=== PATIENT | male | born 1970 | race Caucasian/White ===

== ENCOUNTER 2017-08-27 18:42 | Observation (INO) | payer OTHER ==
--- NOTE | 2017-08-27 19:26 | PDOC ---
History of Present Illness - General History Source: Patient Exam Limitations: No Limitations - History of Present Illness Initial Comments: 08/27/17 20:49 A portion of this note was documented by scribe services under my direction. I have reviewed the details of the note, within reason, and agree with the documentation. The case summary and management plan written by me. Assessment and plan: This is a 47-year-old male who comes in complaining of some chest discomfort/pressure and a cough. Patient has multiple risk factors including he started smoking recently. Patient cardiogram has some flattening of his T waves laterally. Patient's heart scores 4. Patient's chest x-ray shows no acute infiltrate however does show some mild cardiomegaly. Patient's initial troponin is negative however he needs to be placed in observation for 2 more sets of cardiac enzymes to rule out cardiac causes of his chest pressure/ discomfort. Patient will be placed in observation to the hospitalist service. Discussed with hospitalist service. <Jag Ortega I - Last Filed: 08/27/17 20:55> - General History Source: Patient Exam Limitations: No Limitations - History of Present Illness Initial Comments: 08/27/17 19:35 The patient is a 47 year old male with a significant past medical history of hypertension, hyperlipidemia, diabetes, BROWN, sleep apnea (uses a cpap machine), and obesity, who presents to the ED with a cough w/ esparza phlegm that began 3 days ago. Patient also complains of a headache, chills, and sweats. He denies any worsening or alleviating factors. Patient denies body aches, fever, chest pain, SOB, nausea, vomiting, diarrhea. Patient states he has family history of cardiac issues. PAST MEDICAL HISTORY: hypertension, hyperlipidemia, diabetes, BROWN, obesity, sleep apnea. PAST SURGICAL HISTORY: no significant history FAMILY HISTORY: Cardiac issues. (Patient doesn't remember exactly because he is adopted) SOCIAL HISTORY: Pt lives with family and is employed. MEDICATIONS: reviewed ALLERGIES: As per nursing notes ROS General: + chills. + diaphoretic. No fevers no weakness, no weight loss HEENT: No change in vision. No sore throat,. No ear pain CardioVascular: No chest pain or shortness of breath Respiratory: + cough w/ esparza phlegm No wheezing. Gastrointestinal: no nausea, vomiting, diarrhea or constipation, No rectal bleeding Genitourinary: No dysuria, hematuria, or frequency Musculoskeletal: No joint or muscle pain or swelling Neurologic: No headache, vertigo, dizziness or loss of consciousness Psychiatric: nor depression Skin: No rashes or easy bruising Endocrine: no increased thirst or abnormal weight change Allergic: no skin or latex allergy All other systems reviewed and normal Adult Exam: General: Well-nourished well-developed individual, no acute distress. Diaphoretic. HEENT: Throat: Normal, tonsils normal, no erythema or exudate Neck: Supple, no meningeal signs, no lymphadenopathy Eyes:Pupils equal reactive and round, extraocular motion intact Chest: Nontender to palpation Cardiac: S1-S2 normal, regular rate and rhythm, no murmurs rubs or gallops Respiratory: Lungs clear to auscultation bilateral Abdomen: Soft, nondistended, normal bowel sounds, nontender to palpation diffusely Extremities: Warm, dry, no cyanosis, clubbing, or edema Skin: No rashes Neuro: Alert and oriented x3, nonfocal exam, grossly intact, normal gait Psych: Normal mood and affect <Dejon Hall - Last Filed: 08/27/17 21:22> - General Chief Complaint: Cold Symptoms Stated Complaint: COUGH Time Seen by Provider: 08/27/17 19:08 Past History - Past Medical History Anemia: Yes (THE REASON HE IS HAVING GI WORKUP) Asthma: No Cancer: No Cardiac Disorders: Yes (C/O CHEST DISCOMFORT-IRREGULAR HEARTBEAT--NUCLEAR STRESS [place],2013) CVA: No COPD: No CHF: No Dementia: No Diabetes: (BORDERLINE) GI Disorders: Yes (GERD,COLON POLYP-BENIGN,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) HTN: Yes Hypercholesterolemia: Yes Psychiatric Problems: Yes (DEPRESSION/PTS) Seizures: No Thyroid Disease: No - Surgical History Abdominal Surgery: No Appendectomy: No Cardiac Surgery: No Cholecystectomy: No Lung Surgery: No Neurologic Surgery: No Orthopedic Surgery: No - Immunization History Td Vaccination: Yes TDAP Vaccination: Yes Immunization Up to Date: Yes - Suicide/Smoking/Psychosocial Hx Smoking Status: Yes Smoking History: Current every day smoker Years of Tobacco Use: 10 Have you smoked in the past 12 months: Yes Number of Cigarettes Smoked Daily: 20 If you are a former smoker, when did you quit?: 2000 Information on smoking cessation initiated: Yes 'Breaking Loose' booklet given: 08/27/17 Hx Alcohol Use: No Drug/Substance Use Hx: No Substance Use Type: None Hx Substance Use Treatment: No <Jag Ortega I - Last Filed: 08/27/17 20:55> <Dejon Hall - Last Filed: 08/27/17 21:22> - Past Medical History Allergies/Adverse Reactions: Allergies Allergy/AdvReac Type Severity Reaction Status Date / Time No Known Drug Allergies Allergy Verified 08/27/17 18:54 Home Medications: Ambulatory Orders Metoprolol Tartrate [Lopressor -] 50 mg PO BID 06/03/13 Gemfibrozil 600 mg PO BID 08/18/13 Metformin HCl [Metformin HCl ER] 500 mg PO DAILY 08/27/17 *Physical Exam - Vital Signs Last Vital Signs Temp Pulse Resp BP Pulse Ox 98.7 F 107 H 20 140/83 98 08/27/17 18:43 08/27/17 18:43 08/27/17 18:43 08/27/17 18:43 08/27/17 18:43 <Jag Ortega I - Last Filed: 08/27/17 20:55> - Vital Signs Last Vital Signs Temp Pulse Resp BP Pulse Ox 98.7 F 107 H 20 140/83 98 08/27/17 18:43 08/27/17 18:43 08/27/17 18:43 08/27/17 18:43 08/27/17 18:43 <Dejon Hall - Last Filed: 08/27/17 21:22> Heart Score/ECG Review - History History: Slightly suspicious - Electrocardiogram EKG: Non specific repolarization disturbance - Age Age: 45-65 - Risk Factors Risk Factors Heart Score: Yes Hx Hypercholesterolemia, Yes Hx Hypertension, Yes Hx Diabetes, Yes Smoking History Based on the list above the patient has:: >/=3 risk factors or Hx atherosclerotic disease - Troponin Troponin: </= normal limit - Score Heart Score - Total: 4 <Jag Ortega I - Last Filed: 08/27/17 20:55> - ECG Intrepretation Comment:: 08/27/17 21:21 Sinus tachycardia, 101 bpm. TN interval: 158 ms ARS duration: 86 ms QT/QTc: 342/443 ms P-R-T axes: 55 35 49 <Dejon Hall - Last Filed: 08/27/17 21:22> ED Treatment Course - LABORATORY CBC & Chemistry Diagram: 08/27/17 20:01 08/27/17 20:01 <Jag Ortega I - Last Filed: 08/27/17 20:55> - LABORATORY CBC & Chemistry Diagram: 08/27/17 20:01 08/27/17 20:01 <Dejon Hall - Last Filed: 08/27/17 21:22> *DC/Admit/Observation/Transfer - Discharge Dispostion Admit: Yes <Jag Ortega I - Last Filed: 08/27/17 20:55> - Attestations Scribe Attestion: 08/27/17 19:38 Documentation prepared by Dejon Hall, acting as medical affairs specialist for Jag Ortega MD. <Dejon Hall - Last Filed: 08/27/17 21:22> Diagnosis at time of Disposition: Chest tightness or pressure, Cough
[2017-08-27] MEDS ORDERED: ASPIRIN 81 MG CHEWABLE TABLETS PO ONE (19:34)
[2017-08-27] MEDS ORDERED: ASPIRIN 81 MG CHEWABLE TABLETS ONE (19:37)
[2017-08-27 20:16] LABS: BASOPHIL 0.6 % (0-2.0); EOSINOPHIL 3.1 % (0-4.5); MCH 27.6 pg (25.7-33.7); MCHC 32.8 g/dl (32.0-35.9); MEAN CELL VOLUME 83.9 fl (80-96); MEAN PLT VOLUME 10.1 fl (7.5-11.1); PLATELET COUNT 172 K/MM3 (134-434); RDW 12.9 % (11.9-15.9)
[2017-08-27 20:25] LABS: ALBUMIN 4.1 g/dl (3.5-5.0); ALK PHOS 65 U/L (32-92); ANION GAP 6 (8-16); BILIRUBIN,TOTAL 0.4 mg/dl (0.2-1.0); CALCIUM 9.1 mg/dl (8.4-10.2); CO2 28 mmol/L (22-28); CREATININE 1.1 mg/dl (0.6-1.3); GLUCOSE,RANDOM 174 mg/dl (74-106); SGOT/AST 21 U/L (10-42); SGPT/ALT 25 U/L (10-40)
[2017-08-27 20:26] LABS: CPK 72 IU/L (39-308)
[2017-08-27 20:39] LABS: TROPONIN I (DFP) < 0.03 ng/ml (0.03-0.50)
--- NOTE | 2017-08-27 23:11 | HP ---
CHIEF COMPLAINT: Cough, Chest Pain PCP: HISTORY OF PRESENT ILLNESS: This is a 47 y/o man with a past medical history of Hypertension, Hyperlipidemia , Diabetes Mellitus, Smoker. Who presents to the ED with a productive cough x 3 days, chest pain and diaphoresis x today. Patient reports having flu-like symptoms, coughing brownish phlegm. Patient describes the chest pain as intermittent, sharp non-radiating. Patient reports recent stress with a past S.O. causing him to start smoking again after a 15 year hiatus. Patient denies fever, chills, dizziness, AP, V/D, constipation, dysuria. ER course was notable for: (1) EKG- flattening T waves laterally (2) Trop I neg x1 (3) Glucose 174 Recent Travel: None PAST MEDICAL HISTORY: HTN HLD DM BROWN PAST SURGICAL HISTORY: Hydrocele removed as a child Pilonidal Cyst removal Colonoscopy Social History: SmokinPPD Alcohol: Occasional Drugs: Denies Lives alone, employed Family History: Father: Epilepsy Grandparents: Heart Disease Allergies No Known Drug Allergies Allergy (Verified 08/27/17 18:54) HOME MEDICATIONS: Home Medications Medication Instructions Recorded Metoprolol Tartrate [Lopressor -] 50 mg PO BID 06/03/13 Gemfibrozil 600 mg PO BID 08/18/13 Metformin HCl [Metformin HCl ER] 500 mg PO DAILY 08/27/17 REVIEW OF SYSTEMS CONSTITUTIONAL: diaphoresis Absent: fever, chills, generalized weakness, malaise, loss of appetite, weight change HEENT: nasal congestion Absent: rhinorrhea, throat pain, throat swelling, difficulty swallowing, mouth swelling, ear pain, eye pain, visual changes CARDIOVASCULAR: chest pain, peripheral edema Absent: syncope, palpitations, irregular heart rate, lightheadedness RESPIRATORY: cough Absent: shortness of breath, dyspnea with exertion, orthopnea, wheezing, stridor , hemoptysis GASTROINTESTINAL: Absent: abdominal pain, abdominal distension, nausea, vomiting, diarrhea, constipation, melena, hematochezia GENITOURINARY: Absent: dysuria, frequency, urgency, hesitancy, hematuria, flank pain, genital pain MUSCULOSKELETAL: Absent: myalgia, arthralgia, joint swelling, back pain, neck pain SKIN: Absent: rash, itching, pallor HEMATOLOGIC/IMMUNOLOGIC: Absent: easy bleeding, easy bruising, lymphadenopathy, frequent infections ENDOCRINE: Absent: unexplained weight gain, unexplained weight loss, heat intolerance, cold intolerance NEUROLOGIC: Absent: headache, focal weakness or paresthesias, dizziness, unsteady gait, seizure, mental status changes, bladder or bowel incontinence PSYCHIATRIC: Absent: anxiety, depression, suicidal or homicidal ideation, hallucinations. PHYSICAL EXAMINATION GENERAL: Awake, alert, and fully oriented, in no acute distress. HEAD: Normal with no signs of trauma. EYES: Pupils equal, round and reactive to light, extraocular movements intact, sclera anicteric, conjunctiva clear. No lid lag. EARS, NOSE, THROAT: Ears normal, nares patent, oropharynx clear without exudates. Moist mucous membranes. NECK: Normal range of motion, supple without lymphadenopathy, JVD, or masses. LUNGS: Breath sounds equal, clear to auscultation bilaterally. No wheezes, and no crackles. No accessory muscle use. HEART: Regular rate and rhythm, normal S1 and S2 without murmur, rub or gallop. +Reproducible CP upon palpation ABDOMEN: Obese, soft, nontender, not distended, normoactive bowel sounds, no guarding, no rebound, no masses. No hepatomegaly or splenomegaly. MUSCULOSKELETAL: Normal range of motion at all joints. No bony deformities or tenderness. No CVA tenderness. UPPER EXTREMITIES: 2+ pulses, warm, well-perfused. No cyanosis. No clubbing. No peripheral edema. LOWER EXTREMITIES: 2+ pulses, warm, well-perfused. No calf tenderness. +1 pitting B/L peripheral edema. NEUROLOGICAL: Cranial nerves II-XII intact. Normal speech. Normal gait. PSYCHIATRIC: Cooperative. Good eye contact. Appropriate mood and affect. SKIN: Warm, dry, normal turgor, no rashes or lesions noted, normal capillary refill. Laboratory Results - last 24 hr 08/27/17 08/27/17 08/27/17 19:55 20:01 20:01 WBC 8.0 D RBC 4.80 Hgb 13.2 Hct 40.3 MCV 83.9 MCH 27.6 MCHC 32.8 RDW 12.9 Plt Count 172 MPV 10.1 D Neutrophils % 72.0 Lymphocytes % 18.5 D Monocytes % 5.8 Eosinophils % 3.1 Basophils % 0.6 Sodium 139 Potassium 3.8 Chloride 105 Carbon Dioxide 28 Anion Gap 6 L BUN 16 D Creatinine 1.1 D Creat Clearance w eGFR > 60 POC Glucometer Random Glucose 174 H Calcium 9.1 Total Bilirubin 0.4 AST 21 D ALT 25 D Alkaline Phosphatase 65 Creatine Kinase 72 Troponin I < 0.03 L Total Protein 7.0 Albumin 4.1 08/27/17 23:01 WBC RBC Hgb Hct MCV MCH MCHC RDW Plt Count MPV Neutrophils % Lymphocytes % Monocytes % Eosinophils % Basophils % Sodium Potassium Chloride Carbon Dioxide Anion Gap BUN Creatinine Creat Clearance w eGFR POC Glucometer 124 Random Glucose Calcium Total Bilirubin AST ALT Alkaline Phosphatase Creatine Kinase Troponin I Total Protein Albumin ASSESSMENT/PLAN: This is a 47 y/o male with a PMHx of: HTN, HLD, DM, Smoker. Placed in Tele Observation for Chest Pain r/o ACS for further evaluation of their emergent condition. Plan: 1. Chest Pain - r/o ACS - HEART Score 4 - BETTY Score 1 - Serial Enzymes - Appreciate Cardiology Consult - EKG- reviewed - Chest Xray- reviewed - Asa - Mg, Phos, Hgb A1C in am - O2 prn - Morphine Sulfate prn - Consider Echo in outpatient setting - Smoking Cessation 2. Hyperlipidemia - Continue Lipitor - Monitor LFTs 3. Diabetes Mellitus - BGMs - Continue Metformin - Monitor renal function 4. Tobacco Dependency - Restarted smoking 2 months ago, 1PPD - Counseled on smoking cessation, patient is amendable - Patient declines Nicotine Patch 5. FEN - Tolerates PO Fluids - Replete lytes prn - Low Na, Low Cholesterol Diet 6. DVT Prophylaxis - OOB - SCDs - Consider AC if LOS > 48 hrs Code Status: Full Code Problem List - Problem (1) Atypical chest pain Code(s): R07.89 - OTHER CHEST PAIN (2) Cough Code(s): R05 - COUGH (3) HTN (hypertension) Code(s): I10 - ESSENTIAL (PRIMARY) HYPERTENSION (4) Diabetes mellitus Code(s): E11.9 - TYPE 2 DIABETES MELLITUS WITHOUT COMPLICATIONS (5) HLD (hyperlipidemia) Code(s): E78.5 - HYPERLIPIDEMIA, UNSPECIFIED (6) Smoker Code(s): F17.200 - NICOTINE DEPENDENCE, UNSPECIFIED, UNCOMPLICATED (7) DVT prophylaxis Code(s): OOX5893 - Visit type - Emergency Visit Emergency Visit: Yes ED Registration Date: 08/27/17 Care time: The patient presented to the Emergency Department on the above date and was hospitalized for further evaluation of their emergent condition. - New Patient This patient is new to me today: Yes Date on this admission: 08/27/17 - Critical Care Critical Care patient: No
[2017-08-27 23:15] VITALS: PULSE 96
[2017-08-27 23:17] VITALS: BMI 40.0
[2017-08-27] MEDS: guaiFENesin/D-M SUGAR-FREE/ACLHOL-FREE 118 ML BOTTLE PO PRN (23:38)
[2017-08-28] MEDS: guaiFENesin/D-M SUGAR-FREE/ACLHOL-FREE 118 ML BOTTLE PO PRN (03:39)
[2017-08-28] MEDS ORDERED: metFORMIN HCL 500 MG TABLET (FP) PO SCH (07:00)
[2017-08-28] MEDS ORDERED: GEMFIBROZIL 600 MG TABLET (FP) PO SCH (07:00)
[2017-08-28 09:03] LABS: EOSINOPHIL 2.9 % (0-4.5); MCH 28.1 pg (25.7-33.7); MCHC 33.1 g/dl (32.0-35.9); MEAN PLT VOLUME 10.3 fl (7.5-11.1); NEUTROPHILS 69.8 % (42.8-82.8); PLATELET COUNT 136 K/MM3 (134-434); WHITE BLOOD COUNT 6.9 K/mm3 (4.0-10.8)
[2017-08-28 09:43] VITALS: BP 137/68; TEMP 98.1
[2017-08-28] MEDS ORDERED: ASPIRIN 81 MG CHEWABLE TABLETS PO SCH (10:00)
[2017-08-28] MEDS ORDERED: METOPROLOL TARTRATE 25 MG TABLET (FP) PO SCH (10:00)
--- NOTE | 2017-08-28 10:06 | CONSULT ---
Consult - text type - Consultation Consultation Note: ASKED BY DR. Bernal TO SEE PT. 47 YO MAN 08/27/17 CHEST PAIN. PT SEEN, EXAMINED. X RAYS, ECG REVIEWED. WORKING DX: NON CARDIAC CHEST WALL SYMPTOMS. NO EVIDENCE TO DATE OF ACUTE MYOCARDIAL ISCHEMIA/INFARCTION. REC:: REVIEW PRIOR CARDIAC STUDIES/STRESS NUCLEAR NOT PRESENTLY AVAILABLE. RISK FACTOR MODIFICATION. COMPLETE CESSATION OF SMOKING. REPEAT ECG AWAIT TROPONIN LEVEL PENDING OUT PATIENT CARDIOLOGY FOLLOW UP. THANKS. FULL NOTE DICTATED. WILL FOLLOW
--- NOTE | 2017-08-28 10:42 | DS ---
Physical Exam: SUBJECTIVE: Patient seen and examined OBJECTIVE: Vital Signs Period Temp Pulse Resp BP Sys/Sutton Pulse Ox Last 24 Hr 98.1 F-98.2 F 96-96 16-18 133-137/68-73 99 PHYSICAL EXAM GENERAL: The patient is awake, alert, and fully oriented, in no acute distress. HEAD: Normal with no signs of trauma. EYES: PERRL, extraocular movements intact, sclera anicteric, conjunctiva clear. ENT: Ears normal, nares patent, oropharynx clear without exudates, moist mucous membranes. NECK: Trachea midline, full range of motion, supple. LUNGS: Breath sounds equal, clear to auscultation bilaterally, no wheezes, no crackles, no accessory muscle use. HEART: Regular rate and rhythm, S1, S2 without murmur, rub or gallop. ABDOMEN: Soft, nontender, nondistended, normoactive bowel sounds, no guarding, no rebound, no hepatosplenomegaly, no masses. EXTREMITIES: 2+ pulses, warm, well-perfused, no edema. NEUROLOGICAL: Cranial nerves II through XII grossly intact. Normal speech, gait not observed. PSYCH: Normal mood, normal affect. SKIN: Warm, dry, normal turgor, no rashes or lesions noted. LABS Laboratory Results - last 24 hr 08/27/17 08/28/17 08/28/17 23:01 02:20 02:20 WBC RBC Hgb Hct MCV MCH MCHC RDW Plt Count MPV Neutrophils % Lymphocytes % Monocytes % Eosinophils % Basophils % POC Glucometer 124 Troponin I Cancelled < 0.02 08/28/17 08/28/17 07:00 07:18 WBC 6.9 RBC 4.42 Hgb 12.4 Hct 37.6 MCV 85.0 MCH 28.1 MCHC 33.1 RDW 13.0 Plt Count 136 D MPV 10.3 Neutrophils % 69.8 Lymphocytes % 19.6 Monocytes % 7.7 Eosinophils % 2.9 Basophils % 0.0 POC Glucometer 106 Troponin I HOSPITAL COURSE: Date of Admission:08/27/17 Date of Discharge: 08/28/17 Minutes to complete discharge: 30 Discharge Summary Reason For Visit: COUGH,chest tightness/pressure Current Active Problems Chest tightness or pressure (Acute) Cough (Acute) DVT prophylaxis (Acute) Diabetes mellitus (Acute) HLD (hyperlipidemia) (Acute) HTN (hypertension) (Acute) Smoker (Acute) Condition: Stable - Instructions Diet, Activity, Other Instructions: Drink plenty of fluids. Take Tylenol or Motrin as directed by manufacturers instructions as needed for pain and/or fever. Make sure to follow up with her primary doctor within the next 96 hours his symptoms do not improve. Using Micaela pot to help improve nasal congestion. Use Coricidin to help with nasal congestion as this will not raise her blood pressure. Avoid [id number] cold remedies that contain the medicine phenylephrine. Return to the emergency department for any fevers, chest pain, shortness of breath, dizziness, or any other concerns. Thank you very much for choosing us to provide for your emergent healthcare needs. Referrals: Chapo Cao MD [Primary Care Provider] - Disposition: HOME - Home Medications Comprehensive Discharge Medication List: Ambulatory Orders Metoprolol Tartrate [Lopressor -] 50 mg PO BID 06/03/13 Gemfibrozil 600 mg PO BID 08/18/13 Metformin HCl [Metformin HCl ER] 500 mg PO DAILY 08/27/17 This patient is new to me today: Yes Date on this admission: 08/28/17 Emergency Visit: Yes ED Registration Date: 08/27/17 Care time: The patient presented to the Emergency Department on the above date and was hospitalized for further evaluation of their emergent condition. Critical Care patient: No - Discharge Referral Referred to [facility] Med P.C.: No
[2017-08-28 10:46] LABS: ANION GAP 10 (8-16); CALCIUM 8.6 mg/dl (8.4-10.2); CO2 26 mmol/L (22-28); CREATININE 0.9 mg/dl (0.6-1.3); GLUCOSE,RANDOM 101 mg/dl (74-106); MAGNESIUM 1.7 mg/dL (1.8-2.4); PHOSPHOROUS 3.6 mg/dl (2.5-4.6)
[2017-08-28 11:08] LABS: CHOLESTEROL 121 mg/dl
--- NOTE | 2017-08-28 12:08 | CONS ---
DATE OF CONSULTATION: 08/28/2017 REQUESTING PROVIDER: Benny Pollard NP PATIENT PROFILE: The patient is a 47-year-old man admitted on August 27, 2017, because of chest pain and coughing. HISTORY OF PRESENT ILLNESS: The patient carries a diagnosis of atherosclerotic heart disease. However, there is no history of a myocardial infarction. He reportedly has undergone 2 nuclear stress studies and has been maintained on medical therapy, including beta-blockers. There is a prior history of smoking cigarettes, which were stopped in 2014. However, several months ago he resumed smoking heavily, greater than 1 pack of cigarettes per day. He began to complain of a cough productive of brownish sputum, upper chest and head congestion, and a hotness across his chest, which brought him to the emergency room. There was no associated diaphoresis, nausea or vomiting. Since admission, his symptoms have abated. He states that the discomfort and congestion are related to "smoking too much." PAST MEDICAL HISTORY: There is a previous history of [id number] diabetes, obesity, hypertension and hyperlipidemia. MEDICATIONS: The present medications include metoprolol tartrate 50 mg b.i.d., metformin 500 mg daily, Lopid 600 mg b.i.d., aspirin 81 mg per day. PAST SURGICAL HISTORY: Hydrocele repair, pilonidal cyst. SOCIAL HISTORY: He lives alone at home and manages his own affairs. 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 He smokes greater than 1 pack of cigarettes per day. There is no history of excessive alcohol use, but he does engage in social ingestion. FAMILY HISTORY: His father of complications of diabetes and dementia. His mother is alive, without known heart disease. However, his grandparents did have coronary artery disease. ALLERGIES: None. REVIEW OF SYSTEMS: General: He has lost weight recently voluntarily, but previously had weighed greater than 340 pounds. Gastrointestinal: No melena. No vomiting. Pulmonary: No hemoptysis. Neurological: No focal deficit. PHYSICAL EXAMINATION: General: The patient appears "big." Vitals: Weight 287 pounds, height 5 feet 11 inches. Blood pressure 137/68, temperature afebrile, heart rate 96, respiratory rate 18 per minute. Oxygen saturation 99% on ambient air. Neck: There is no neck vein distention. There is no carotid bruit. Respiratory: The lung salazar are clear. There is no wheezing. There is no dullness to percussion. Cardiac: The heart sounds are normal, although distant. No murmur. No gallop is detected. Abdomen: Soft and nontender. There is no organ enlargement. There is no abdominal bruit. Extremities: There is no peripheral edema. Neurologic: There is no focal neurological deficit. DATABASE: The chest x-ray was reviewed. It is an AP portable film. The heart size cannot accurately assessed due to the technique of the film. However, there is no infiltrate, effusion or pulmonary venous congestion. The lung salazar are clear. The electrocardiogram demonstrates sinus tachycardia, rate of 101 beats per minute, possible inferior wall myocardial infarction of indeterminate age, nonspecific ST and T-wave changes. There are no acute ST and T-wave changes seen. There is minimal elevation of the ST segments in the inferior and lateral leads. Prior tracings are not available for comparison. Laboratory studies of note include a troponin level of less than 0.02, on multiple determinations. CPK 72. The electrolytes are normal, BUN 16, creatinine 1.1. White blood cell count 6.9, hematocrit 37%; platelet count 136,000. IMPRESSION: The working diagnosis is non-cardiac musculoskeletal chest pain. The history is consistent with this diagnosis. The differential diagnosis would include myocardial ischemia/atherosclerotic heart disease. The patient has multiple risk factors for the development of atherosclerotic heart disease and reportedly has had an abnormal stress nuclear study in the. He has not undergone coronary arteriography. The normal biochemical markers for myocardial necrosis argue strongly against an acute coronary ischemic event despite the abnormalities seen on the admission electrocardiogram. The patient is presently hemodynamically stable, without evidence of heart failure. RECOMMENDATIONS: I have recommended the followin. Prior records regarding cardiac studies, stress nuclear studies, etc., not presently available are requested for review. 2. Risk factor modification. 3. Complete cessation of smoking. 4. Repeat ECG on August 28, 2017. 5. Outpatient cardiology follow-up. The diagnosis, prognosis, risks, options and importance of outpatient cardiology follow-up were expressed at length to the patient and all questions answered. Thank you for allowing me to take part in the care of this pleasant patient. BENNY DIAZ M.D. [id number]
--- NOTE | 2017-08-28 16:39 | EKG ---
Test Reason : Blood Pressure : / mmHG Vent. Rate : 094 BPM Atrial Rate : 094 BPM P-R Int : 164 ms QRS Dur : 084 ms QT Int : 362 ms P-R-T Axes : 039 026 032 degrees QTc Int : 452 ms SINUS RHYTHM WHEN COMPARED WITH ECG OF 27-AUG-2017 19:40, NO SIGNIFICANT CHANGE WAS FOUND Confirmed by YURY CHEW MD ([id number]) on 08/28/2017 4:39:04 PM Referred By: MATTHEW ERICKSON Confirmed By:YURY CHEW MD
--- NOTE | 2017-08-28 16:43 | EKG ---
Test Reason : Blood Pressure : / mmHG Vent. Rate : 101 BPM Atrial Rate : 101 BPM P-R Int : 158 ms QRS Dur : 086 ms QT Int : 342 ms P-R-T Axes : 055 035 049 degrees QTc Int : 443 ms SINUS TACHYCARDIA NO PREVIOUS ECGS AVAILABLE Confirmed by YURY CHEW MD ([id number]) on 08/28/2017 4:43:00 PM Referred By: RACHANA LOW Confirmed By:YURY CHEW MD
== END 2017-08-28 11:16 | disposition home or self-care (01) ==
LOC: FER 18:42 → FM/S 21:31
PROVIDERS: ADMIT Internal Medicine; ATTEND Nurse Practitioner Family
DX: R07.89 Other chest pain (principal); R05 Cough; I10 Essential (primary) hypertension; E78.5 Hyperlipidemia, unspecified; E11.9 Type 2 diabetes mellitus without complications; E66.9 Obesity, unspecified; Z68.41 Body mass index [BMI] 40.0-44.9, adult; G47.30 Sleep apnea, unspecified; Z99.89 Dependence on other enabling machines and devices; D64.9 Anemia, unspecified; K21.9 Gastro-esophageal reflux disease without esophagitis; F32.9 Major depressive disorder, single episode, unspecified; F17.210 Nicotine dependence, cigarettes, uncomplicated; Z79.84 Long term (current) use of oral hypoglycemic drugs
CPT/HCPCS: 36415; 71010-TC; 80048; 80053; 80061; 82550; 83036; 83735; 84100; 84484; 85025; 93005; 99285-25; G0378